=== PATIENT | female | born 1985 | race Asian ===

== ENCOUNTER 2022-06-18 13:24 | Emergency (ER) | payer OTHER ==
[2022-06-18 14:10] VITALS: BP 115/71; PULSE 73; RESP 20; TEMP 99.4; BMI 27.1
== END 2022-06-18 15:19 | disposition home or self-care (01) ==
LOC: FER 13:24
DX: F41.9 Anxiety disorder, unspecified (principal)
CPT/HCPCS: 99283-25

== ENCOUNTER 2022-08-17 05:52 | Emergency (ER) | payer OTHER ==
[2022-08-17 06:05] VITALS: TEMP 98.9; BMI 28.9
[2022-08-17] MEDS ORDERED: ONDANSETRON 4 MG/2 ML VIAL IVPUSH ONE ×2 (07:30→08:48)
[2022-08-17] MEDS ORDERED: LACTATED RINGERS SOLUTION 1000 ML INFUS.BAG IV ONE (07:30)
[2022-08-17] MEDS ORDERED: FAMOTIDINE 20 MG/50 ML IVPB 50 ML IVPB ONE (07:30)
[2022-08-17] MEDS ORDERED: METOCLOPRAMIDE HCL INJECTION 10 MG/2 ML VIAL IVPUSH ONE (07:36)
[2022-08-17] MEDS ORDERED: METOCLOPRAMIDE HCL INJECTION 10 MG/2 ML VIAL ONE (08:07)
[2022-08-17] MEDS ORDERED: FAMOTIDINE 20 MG/50 ML IVPB 20 MG/50 ML MG IVPB ONE ×2 (08:07→08:15)
[2022-08-17 08:39] LABS: ALBUMIN 3.8 g/dl (3.4-5.0); BILIRUBIN,TOTAL 0.4 mg/dl (0.2-1); CALCIUM 8.6 mg/dl (8.5-10); TOT PROT 7.3 g/dl (6.4-8.2)
[2022-08-17] MEDS ORDERED: ONDANSETRON 4 MG/2 ML VIAL ONE (09:16)
[2022-08-17 09:20] LABS: HEMATOCRIT 40.2 % (32.4-45.2); MCH 27.1 pg (25.7-33.7); MCHC 32.4 g/dl (32.0-36.0); MEAN CELL VOLUME 83.8 fl (80-96); MEAN PLT VOLUME 9.6 fl (7.5-11.1); PLATELET COUNT 242.9 10^3/uL (134-434); RDW 14.7 % (11.6-15.6); WHITE BLOOD COUNT 13.4 10^3/uL (4.0-10.8)
[2022-08-17 09:48] LABS: PLATELET ESTIMATE ADEQUATE
[2022-08-17 11:33] VITALS: BP 104/62; PULSE 62; RESP 16
== END 2022-08-17 11:41 | disposition home or self-care (01) ==
LOC: FER 05:52
PROC: 3E033GC Introduction of Other Therapeutic Substance into Peripheral Vein, Percutaneous Approach (ICD-10-PCS; principal; 2022-08-17)
PROC: 3E033GC Introduction of Other Therapeutic Substance into Peripheral Vein, Percutaneous Approach (ICD-10-PCS; 2022-08-17)
PROC: 3E033GC Introduction of Other Therapeutic Substance into Peripheral Vein, Percutaneous Approach (ICD-10-PCS; 2022-08-17)
DX: R11.2 Nausea with vomiting, unspecified (principal)
CPT/HCPCS: 36415; 80053; 81025; 85027; 99284-25